=== PATIENT | female | born 1960 | race Caucasian/White ===

== ENCOUNTER → 2018-03-14 15:31 | Outpatient (CLI) | payer BC | END | disposition home or self-care (01) | LOC: D.CT 15:31 | DX: R91.8 Other nonspecific abnormal finding of lung field (principal) ==

== ENCOUNTER 2019-09-01 09:00 | Outpatient (CLI) | payer BC | END 2019-09-01 10:00 | disposition home or self-care (01) | LOC: D.MAMMO 09:00 | PROVIDERS: ATTEND Family Medicine | DX: Z12.31 Encounter for screening mammogram for malignant neoplasm of breast (principal) ==

== ENCOUNTER 2020-06-08 09:25 | Emergency (ER) | payer BC ==
[~2020-06-08] VITALS: Ht 175.3 cm; Wt 79.5 kg
[2020-06-08 09:37] VITALS: BP 118/78; Ht 175.3 cm; Wt 79.5 kg
[2020-06-08 10:54] LABS: BASOPHILS 0.3 % (0-2); EOSINOPHILS 1.9 % (0-7); HEMATOCRIT 43.8 % (36.0-48.0); HEMOGLOBIN 14.5 g/dL (12-16); IMMATURE GRANULOCYTES 0.2 % (0-5); LYMPHOCYTES 22.9 % (15-50); MCH 31.8 pg (26.0-34.0); MCHC 33.1 g/dL (31.0-37.0); MCV 96.1 fL (80.0-100.0); MEAN PLATELET VOLUME 8.7 fL (7.4-10.4); NEUTROPHILS 69.7 % (40-80); PLATELET COUNT 234 10x3/uL (130-400); RBC 4.56 10x6/uL (4.00-5.40); RDW 12.6 % (11.5-14.5)
[2020-06-08 11:15] LABS: ALBUMIN 3.6 g/dL (3.4-5.0); ANION GAP 8.6 mmol/L (8-16); BILIRUBIN - TOTAL 0.43 mg/dL (0.2-1.3); CALCIUM 9.5 mg/dL (8.5-10.1); POTASSIUM - SERUM 4.6 mmol/L (3.5-5.1); PROTEIN - SERUM 7.8 g/dL (6.4-8.2)
[2020-06-08] MEDS ORDERED: ZPAK PO (11:41)
[2020-06-08] MEDS ORDERED: PREDNISONE10 MG PO (11:41)
[2020-06-08] MEDS ORDERED: ALBUTEROL SULF8.5 GM INH (11:41)
== END 2020-06-08 11:53 | disposition home or self-care (01) ==
LOC: D.ER 09:25
PROVIDERS: Family Medicine
DX: J06.9 Acute upper respiratory infection, unspecified (principal); M25.512 Pain in left shoulder

== ENCOUNTER 2020-06-11 04:13 | Emergency (ER) | payer BC ==
[~2020-06-11] VITALS: Ht 175.3 cm; Wt 79.5 kg
[~2020-06-11 04:13] MED LIST: ALBUTEROL SULF8.5 GM INH; PREDNISONE10 MG PO; ZPAK PO
[2020-06-11 04:21] VITALS: Ht 175.3 cm; Wt 79.5 kg
[2020-06-11] MEDS ORDERED: FAMVIR500 MG PO (04:30)
[2020-06-11 04:37] VITALS: BP 153/87
== END 2020-06-11 04:37 | disposition home or self-care (01) ==
LOC: D.ER 04:13
DX: B02.9 Zoster without complications (principal); M25.512 Pain in left shoulder